=== PATIENT | female | born 1980 | race Caucasian/White ===

== ENCOUNTER 2016-08-30 11:37 | Emergency (ER) | payer MEDICAID, OTHER ==
--- NOTE | 2016-08-30 12:24 | EDM.PDOC ---
ED HPI GI/ABDOMINAL - General Chief Complaint: Abdominal Pain Stated Complaint: GALL BLADDER Time Seen by Provider: 08/30/16 12:19 Source of Information: Reports: Patient History Limitations: Reports: No limitations - History of Present Illness INITIAL COMMENTS - FREE TEXT/NARRATIVE: Pt states that she is having abdominal pain for the past 2 years intermittently however this week(since Wednesday) it has been worse. States that she believes that it was her gall bladder because she had greasy foods last week and has been having diarrhea since then. States that pain is in RUQ and radites to R flank. denies vomiting currently. pt does not appear in distress but rates pain 12/14. Symptom Onset Date: 08/25/16 Timing/Duration: Reports: Getting worse Location: RUQ Quality: Reports: stabbing, radiating Severity: moderate Associated Symptoms (-Female): Reports: back pain, diarrhea - Related Data Allergies/ADRs: Allergies Allergy/AdvReac Type Severity Reaction Status Date / Time blue dye Allergy Other Verified 11/02/15 07:43 cinnamon Allergy Other Verified 11/02/15 07:43 egg Allergy Other Verified 11/02/15 07:43 gluten Allergy Diarrhea Verified 08/30/16 11:51 peanut Allergy Other Verified 11/02/15 07:43 red dye Allergy Other Verified 11/02/15 07:43 Home Meds: Home Meds PARoxetine [Paxil] 10 mg PO DAILY 08/30/16 [History] Past Medical History - Past Health History Medical/Surgical History: Denies Medical/Surgical History HEENT History: Reports: Impaired vision Other HEENT History: wears glasses Cardiovascular History: Reports: None Respiratory History: Reports: None Gastrointestinal History: Reports: None Genitourinary History: Reports: None 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 Musculoskeletal History: Reports: None Neurological History: Reports: None Psychiatric History: Reports: Anxiety Endocrine/Metabolic History: Reports: Obesity/BMI 30+ Hematologic History: Reports: None Immunologic History: Reports: None Oncologic (Cancer) History: Reports: None Dermatologic History: Reports: None - Infectious Disease History Infectious Disease History: Reports: Chicken pox - Past Surgical History Head Surgeries/Procedures: Reports: None Female Surgical History: Reports: section Social & Family History - Family History Family Medical History: Noncontributory - Tobacco Use Smoking Status *Q: Never Smoker Second Hand Smoke Exposure: No - Caffeine Use Caffeine Use: Reports: Tea - Recreational Drug Use Recreational Drug Use: No - Living Situation & Occupation Living situation: Reports: , with family ED ROS GENERAL - Review of Systems Review Of Systems: See Below GI/Abdominal: Reports: Abdominal pain, Diarrhea, Nausea ED EXAM, GI/ABD - Physical Exam Exam: See Below Exam Limited By: No limitations General Appearance: alert, WD/WN, no apparent distress Eyes: bilateral: normal appearance, EOMI GI/Abdominal: normal bowel sounds, soft, no organomegaly, no distention, no abnormal bruit, no mass, tenderness Neurological: alert, oriented, CN II-XII intact, normal cognition, normal gait, normal reflexes, no motor/sensory deficits Course - Vital Signs Last Recorded V/S: Last Vital Signs Temp 97.6 F 08/30/16 11:44 Pulse 96 08/30/16 11:59 Resp 16 08/30/16 11:59 BP 167/103 H 08/30/16 11:52 Pulse Ox 100 08/30/16 11:59 - Re-Assessments/Exams Free Text/Narrative Re-Assessment/Exam: 08/30/16 12:24 With lack of Ultrasound, pt states that she would rather go to [facility] for treatment. States that she has a doctors appointment tomorrow with her PCP however she can not wait. Offered patient full work up and pain medications however patient would prefer to receive medication when she gets to [facility] as she is nervous about it causing more complications. Pt states she will go directly to [facility] for further treatment. Vitals stable, pt in no distress. Encouraged patient to go directly to [facility], will notify [facility] of patients potential arrival. Departure - Departure Time of Disposition: 12:29 Disposition: Home, Self-Care 01 Condition: good Clinical Impression: Abdominal pain Qualifiers: Abdominal location: right upper quadrant Qualified Code(s): R10.11 - Right upper quadrant pain Instructions: Abdominal Pain, Adult, [id number] Forms: ED Department Discharge Additional Instructions: Go to nearest ER for worsening symptoms. You may go to [facility] for workup if desired, however if unable , please return for further treatment.
== END 2016-08-30 12:40 | disposition home or self-care (01) ==
LOC: DL.ED 11:37
CPT/HCPCS: 99282; 99284

== ENCOUNTER 2017-01-24 11:01 | Emergency (ER) | payer MEDICAID ==
[2017-01-24 11:15] VITALS: BP 141/89
--- NOTE | 2017-01-24 11:18 | EDM.PDOC ---
ED HPI GENERAL MEDICAL PROBLEM - General Chief Complaint: ENT Problem Stated Complaint: TONSILS OUT BLEEDING [id number] Time Seen by Provider: 01/24/17 11:13 Source of Information: Reports: Patient, Family () History Limitations: Reports: No Limitations - History of Present Illness INITIAL COMMENTS - FREE TEXT/NARRATIVE: 36 yo white female s/p Tonsilectomy on Wednesday ( 3 days ago) c/o some red blood with nausea. Onset Date: 01/24/17 Onset Time: 07:00 Duration: Hour(s): Location: Reports: Head Severity: Mild Context: Reports: Other (s/p Tonsillectomy 3 days ago) Associated Symptoms: Reports: No Other Symptoms - Related Data Allergies Allergy/AdvReac Type Severity Reaction Status Date / Time blue dye Allergy Other Verified 11/02/15 07:43 cinnamon Allergy Other Verified 11/02/15 07:43 egg Allergy Other Verified 11/02/15 07:43 gluten Allergy Diarrhea Verified 08/30/16 11:51 peanut Allergy Other Verified 11/02/15 07:43 red dye Allergy Other Verified 11/02/15 07:43 Home Meds: Home Meds PARoxetine [Paxil] 10 mg PO DAILY 08/30/16 [History] Past Medical History - Past Health History Medical/Surgical History: Denies Medical/Surgical History HEENT History: Reports: Impaired Vision Other HEENT History: wears glasses Cardiovascular History: Reports: None Respiratory History: Reports: None Gastrointestinal History: Reports: None Genitourinary History: Reports: None 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 Musculoskeletal History: Reports: None Neurological History: Reports: None Psychiatric History: Reports: Anxiety Endocrine/Metabolic History: Reports: Obesity/BMI 30+ Hematologic History: Reports: None Immunologic History: Reports: None Oncologic (Cancer) History: Reports: None Dermatologic History: Reports: None - Infectious Disease History Infectious Disease History: Reports: Chicken Pox - Past Surgical History Female Surgical History: Reports: Section Social & Family History - Family History Family Medical History: Noncontributory - Tobacco Use Smoking Status *Q: Never Smoker Second Hand Smoke Exposure: No - Caffeine Use Caffeine Use: Reports: Tea - Recreational Drug Use Recreational Drug Use: No - Living Situation & Occupation Living situation: Reports: , with Family ED ROS ENT - Review of Systems Review Of Systems: See Below Constitutional: Reports: No Symptoms HEENT: Reports: Throat Pain (s/p tonsilectomy 3 days ago) Respiratory: Reports: No Symptoms Cardiovascular: Reports: No Symptoms Endocrine: Reports: No Symptoms GI/Abdominal: Reports: No Symptoms : Reports: No Symptoms Musculoskeletal: Reports: No Symptoms Skin: Reports: No Symptoms Neurological: Reports: No Symptoms Psychiatric: Reports: No Symptoms Hematologic/Lymphatic: Reports: No Symptoms Immunologic: Reports: No Symptoms ED EXAM, ENT - Physical Exam Exam: See Below Exam Limited By: No Limitations General Appearance: Alert, Obese Eye Exam: Bilateral Eye: PERRL Ears: Normal External Exam Nose: Normal Inspection Mouth/Throat: Throat Pain, Other (healing post tonsilectomy w/o active bleeding) Head: Atraumatic Neck: Normal Inspection, Supple Respiratory/Chest: No Respiratory Distress, Lungs Clear Cardiovascular: Normal Peripheral Pulses, Regular Rate, Rhythm GI/Abdominal: Normal Bowel Sounds, Soft Back: Normal Inspection Extremities: Normal Inspection, Normal Range of Motion Neurological: Alert, Oriented, CN II-XII Intact Psychiatric: Normal Affect, Normal Mood Skin: Warm, Dry, Intact Lymphatic: No Adenopathy Departure - Departure Time of Disposition: 11:17 Disposition: Home, Self-Care 01 Condition: Good Clinical Impression: Hemorrhage, tonsil, postoperative - Discharge Information Forms: ED Department Discharge Additional Instructions: Rest Increase intake of fluids ( Water / Juice and may suck on ice) Diet to be ( Liquid or Soft) F/U w/ ENT Wednesday for re-check
== END 2017-01-24 11:30 | disposition home or self-care (01) ==
LOC: DL.ED 11:01
DX: J95.831 Postprocedural hemorrhage of a respiratory system organ or structure following other procedure (principal); E66.9 Obesity, unspecified; F41.9 Anxiety disorder, unspecified; Z98.890 Other specified postprocedural states; Z91.041 Radiographic dye allergy status; Z91.012 Allergy to eggs; Z91.010 Allergy to peanuts
CPT/HCPCS: 99283

== ENCOUNTER 2017-04-09 11:09 | Emergency (ER) | payer MEDICAID, OTHER, SELFPAY ==
[2017-04-09 11:39] VITALS: BP 143/84
--- NOTE | 2017-04-09 12:12 | CR ---
Clinical history: 36-year-old female with pain after fall. Interpretation: Soft tissue swelling and ankle joint effusion. No fracture or dislocation left foot (atavistic first cuneiform). Large heel spurs at the insertion plantar aponeurosis and Achilles tendon on the os calcis.
--- NOTE | 2017-04-09 12:12 | CR ---
Clinic history: 36-year-old female left ankle pain associated with fall. Interpretation: Bimalleolar soft tissue swelling and ankle joint effusion without sign of underlying fracture or dislocation. Large heel spurs at the insertion plantar aponeurosis and Achilles tendon on the os calcis. No foreign bodies. CONCLUSION: Sprain.
--- NOTE | 2017-04-09 12:21 | EDM.PDOC ---
ED HPI GENERAL MEDICAL PROBLEM - General Chief Complaint: Lower Extremity Injury/Pain Stated Complaint: HURT ANKLE, [id number] Time Seen by Provider: 04/09/17 11:35 Source of Information: Reports: Patient, RN, RN Notes Reviewed History Limitations: Reports: No Limitations - History of Present Illness INITIAL COMMENTS - FREE TEXT/NARRATIVE: Pt presents to ER with c/o painful, swollen left ankle with pain into the foot, radiates up to the left thigh yesterday, and up to the left knee today. She states she rolled her ankle off a sidewalk while taking her children to the bus. She states it is very painful to bear weight on the foot. Onset Date: 04/08/17 Location: Reports: Lower Extremity, Left Quality: Reports: Ache, Throbbing Severity: Moderate Improves with: Reports: None Worsens with: Reports: Movement Associated Symptoms: Reports: No Other Symptoms Left Ankle Pain Score (Numeric/FACES): 3 - Related Data Allergies Allergy/AdvReac Type Severity Reaction Status Date / Time blue dye Allergy Other Verified 04/09/17 11:24 cinnamon Allergy Other Verified 04/09/17 11:24 egg Allergy Other Verified 04/09/17 11:24 gluten Allergy Diarrhea Verified 04/09/17 11:24 peanut Allergy Other Verified 04/09/17 11:24 red dye Allergy Other Verified 04/09/17 11:24 Home Meds: Home Meds PARoxetine [Paxil] 10 mg PO DAILY 08/30/16 [History] Loratadine/Pseudoephedrine [Loratadine-D 24Hr] 1 tab PO DAILY 04/09/17 [History] Past Medical History - Past Health History Medical/Surgical History: Denies Medical/Surgical History HEENT History: Reports: Impaired Vision Other HEENT History: wears glasses Cardiovascular History: Reports: None Respiratory History: Reports: None Gastrointestinal History: Reports: Diverticulosis Genitourinary History: Reports: None 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 Other OB/BYN History: hysterectomy Musculoskeletal History: Reports: None Neurological History: Reports: None Psychiatric History: Reports: Anxiety Endocrine/Metabolic History: Reports: Obesity/BMI 30+ Hematologic History: Reports: None Immunologic History: Reports: None Oncologic (Cancer) History: Reports: None Dermatologic History: Reports: None - Infectious Disease History Infectious Disease History: Reports: Chicken Pox - Past Surgical History Head Surgeries/Procedures: Reports: None HEENT Surgical History: Reports: Tonsillectomy GI Surgical History: Reports: Cholecystectomy Female Surgical History: Reports: Section Social & Family History - Family History Family Medical History: Noncontributory - Tobacco Use Smoking Status *Q: Never Smoker Second Hand Smoke Exposure: No - Caffeine Use Caffeine Use: Reports: Soda - Recreational Drug Use Recreational Drug Use: Yes Recreational Drug Type: Reports: Marijuana/Hashish Recreational Drug Use Frequency: Rarely Recreational Drug Last Use: "a few weeks ago" - Living Situation & Occupation Living situation: Reports: , with Family Review of Systems - Review of Systems Review Of Systems: ROS reveals no pertinent complaints other than HPI. ED EXAM, GENERAL - Physical Exam Exam: See Below Exam Limited By: No Limitations General Appearance: Alert, WD/WN, No Apparent Distress Eye Exam: Bilateral Eye: Normal Inspection Ears: Normal External Exam, Hearing Grossly Normal Nose: Normal Inspection Throat/Mouth: Normal Inspection, Normal Voice, No Airway Compromise Head: Atraumatic, Normocephalic Neck: Normal Inspection, Supple, Non-Tender, Full Range of Motion Respiratory/Chest: No Respiratory Distress, Lungs Clear, Normal Breath Sounds, No Accessory Muscle Use, Chest Non-Tender Cardiovascular: Normal Peripheral Pulses, Regular Rate, Rhythm, No Gallop, No JVD, No Murmur, No Rub Peripheral Pulses: 2+: Radial (L), Radial (R), Dorsalis Pedis (L), Dorsalis Pedis (R) GI/Abdominal: Normal Bowel Sounds, Soft, Non-Tender (Female) Exam: Deferred Rectal (Female) Exam: Deferred Back Exam: Normal Inspection, Full Range of Motion Extremities: Other (left ankle is edematous, mildly ecchymotic, decreased range of motion, tender to the touch) Neurological: Alert, Oriented, Normal Cognition Psychiatric: Normal Affect, Normal Mood Skin Exam: Warm, Dry, Intact, Normal Color, No Rash Lymphatic: No Adenopathy Course - Vital Signs Last Recorded V/S: Last Vital Signs Temp 98.6 F 04/09/17 11:36 Pulse 90 04/09/17 11:36 Resp 16 04/09/17 11:36 BP 143/84 H 04/09/17 11:36 Pulse Ox 100 04/09/17 11:36 - Re-Assessments/Exams Free Text/Narrative Re-Assessment/Exam: 04/10/17 Rodney wrap applied. Patient states she has a universal Cam boot and crutches at home that she can use. Patient agrees to follow up in the clinic next week if no improvement. Departure - Departure Time of Disposition: 12:18 Disposition: Home, Self-Care 01 Condition: Good Clinical Impression: Left ankle sprain Qualifiers: Encounter type: initial encounter Involved ligament of ankle: unspecified ligament Qualified Code(s): S93.402A - Sprain of unspecified ligament of left ankle, initial encounter - Discharge Information Instructions: Crutch Use, [id number], Ankle Sprain, [id number], Cast or Splint Care, [id number], Muscle Strain, [id number] Referrals: PCP,None [Primary Care Provider] - Forms: ED Department Discharge Additional Instructions: Rest, Ice, Elevation Tylenol or ibuprofen as directed for pain Splint and use crutches Follow up with your primary care facility next week if pain continues
== END 2017-04-09 12:32 | disposition home or self-care (01) ==
LOC: DL.ED 11:09
DX: S93.402A Sprain of unspecified ligament of left ankle, initial encounter (principal); Z91.012 Allergy to eggs; Z91.010 Allergy to peanuts; Z79.899 Other long term (current) drug therapy; X58.XXXA Exposure to other specified factors, initial encounter
CPT/HCPCS: 73610-LT; 73630-LT; 99283

== ENCOUNTER 2019-10-30 21:55 | Observation (INO) | payer MEDICAID ==
[2019-10-30] MEDS ORDERED: Sodium Chloride 0.9% 1,000 ML IV ONE (21:59)
[2019-10-30] MEDS ORDERED: Naloxone 2 MG/2 ML Syringe IVPUSH ONE (22:11)
--- NOTE | 2019-10-30 22:12 | EDM.PDOC ---
ED HPI GENERAL MEDICAL PROBLEM - General Chief Complaint: General Stated Complaint: passing out/feels warm Time Seen by Provider: 10/30/19 22:00 Source of Information: Reports: RN, Other History Limitations: Reports: No Limitations - History of Present Illness INITIAL COMMENTS - FREE TEXT/NARRATIVE: ED per wheel chair friend reports patient keeps passing out. Bedroom area warm and patients boyfriend called her as they did not have transportation. Brought by friend No other information available, Patient drowsy, arousable, able to assist with tx from wheelchair to bed. Admits to taking a couple oxy and a sleeping pill she found in couch. small superficial laceration to lower lip, dried blood on toungue, no sign of bite gutierrez to tongue. No signs of head trauma or other injury. - Related Data Allergies Allergy/AdvReac Type Severity Reaction Status Date / Time blue dye Allergy Other Verified 04/09/17 11:24 cinnamon Allergy Other Verified 04/09/17 11:24 egg Allergy Other Verified 04/09/17 11:24 gluten Allergy Diarrhea Verified 04/09/17 11:24 peanut Allergy Other Verified 04/09/17 11:24 red dye Allergy Other Verified 04/09/17 11:24 Home Meds: Home Meds PARoxetine [Paxil] 10 mg PO DAILY 08/30/16 [History] Loratadine/Pseudoephedrine [Loratadine-D 24Hr] 1 tab PO DAILY 04/09/17 [History] Past Medical History - Past Health History Medical/Surgical History: Denies Medical/Surgical History HEENT History: Reports: Impaired Vision Other HEENT History: wears glasses Cardiovascular History: Reports: None Respiratory History: Reports: None Gastrointestinal History: Reports: Diverticulosis Genitourinary History: Reports: None SPIRAL TUBE WINDER History: Reports: None Other SPIRAL TUBE WINDER History: hysterectomy Musculoskeletal History: Reports: None Neurological History: Reports: None Psychiatric History: Reports: Anxiety Endocrine/Metabolic History: Reports: Obesity/BMI 30+ Hematologic History: Reports: None Immunologic History: Reports: None Oncologic (Cancer) History: Reports: None Dermatologic History: Reports: None - Infectious Disease History Infectious Disease History: Reports: Chicken Pox - Past Surgical History Head Surgeries/Procedures: Reports: None HEENT Surgical History: Reports: Tonsillectomy GI Surgical History: Reports: Cholecystectomy Female Surgical History: Reports: Section Social & Family History - Family History Family Medical History: Noncontributory - Caffeine Use Caffeine Use: Reports: Soda - Living Situation & Occupation Living situation: Reports: , with Family ED ROS GENERAL - Review of Systems Review Of Systems: Comprehensive ROS is negative, except as noted in HPI. Reason Not Obtained: altered mental ED EXAM, GENERAL - Physical Exam Exam: See Below Exam Limited By: No Limitations General Appearance: Lethargic (arouses to voice, eyes flicker, slowed verbal response, twitchy when aroused ), Obese Eye Exam: Bilateral Eye: EOMI, PERRL (sluggish 3 increase to 5 following narcan) Ears: Normal External Exam, Normal TMs Nose: Normal Inspection Throat/Mouth: Normal Voice. No: Normal Lips (2mm laceration mid linner lower lip) Head: Atraumatic, Normocephalic, Other (long slovak with recently purple blue hir) Neck: Normal Inspection Respiratory/Chest: No Respiratory Distress, Lungs Clear, Normal Breath Sounds Cardiovascular: Normal Peripheral Pulses, Regular Rate, Rhythm, No Edema GI/Abdominal: Normal Bowel Sounds, Soft (Female) Exam: Normal External Exam Back Exam: Normal Inspection Extremities: Normal Inspection Neurological: Slow to Respond Psychiatric: Flat Affect, Other (No recent signs of self harm) Skin Exam: Warm, Dry, Tattoo(s) ( recent left thigh dragonfly, mild erythem lower, no drainage ) Course - Vital Signs Last Recorded V/S: Last Vital Signs Temp 99 F 10/30/19 21:59 Pulse 97 10/30/19 21:59 Resp 18 10/30/19 21:59 BP 95/70 10/30/19 21:59 Pulse Ox 91 L 10/30/19 21:59 - Orders/Labs/Meds Orders: Active Orders 24 hr Category Date Time Status Blood Glucose Check, Bedside [RC] ONETIME Care 10/30/19 21:59 Active EKG 12 Lead [EKG Documentation Completion] [RC] URGENT Care 10/30/19 21:59 Active CULTURE BLOOD [BC] Stat Lab 10/30/19 22:14 Received LORazepam [Ativan] Med 10/30/19 22:22 Active 1 mg IVPUSH ONETIME PRN LORazepam [Ativan] Med 10/30/19 23:23 Active 1 mg IVPUSH ONETIME PRN Blood Culture x2 Reflex Set [OM.PC] Stat Oth 10/30/19 22:01 Ordered Medication Orders Lorazepam (Ativan) 1 mg IVPUSH ONETIME PRN PRN Reason: Agitation Last Admin: 10/30/19 22:52 Dose: 1 mg Lorazepam (Ativan) 1 mg IVPUSH ONETIME PRN PRN Reason: Agitation Labs: Laboratory Tests 10/30/19 10/30/19 10/30/19 Range/Units 22:00 22:00 22:05 WBC (5.0-10.0) 10^3/uL RBC (4.2-5.4) 10^6/uL Hgb (12.0-16.0) g/dL Hct (37.0-47.0) % MCV (80-100) fL MCH (27.0-34.0) pg MCHC (33.0-35.0) g/dL Plt Count (150-450) 10^3/uL Neut % (Auto) (42.2-75.2) % Lymph % (Auto) (20.5-50.1) % Berrien % (Auto) (2-8) % Eos % (Auto) (1.0-3.0) % Baso % (Auto) (0.0-1.0) % Sodium (136-145) mmol/L Potassium (3.5-5.1) mmol/L Chloride (98-107) mmol/L Carbon Dioxide (21-32) mmol/L Anion Gap (7-13) mEq/L BUN (7-18) mg/dL Creatinine (0.55-1.02) mg/dL Est Cr Clr Drug Dosing Estimated GFR (MDRD) BUN/Creatinine Ratio (No establ ref range) Glucose (74-99) mg/dL POC Glucose 91 (70-105) mg/dl Lactic Acid (0.4-2.0) mmol/L Calcium (8.5-10.1) mg/dL Total Bilirubin (0.2-1.0) mg/dL AST (15-37) U/L ALT (14-59) U/L Alkaline Phosphatase (46-116) U/L Total Protein (6.4-8.2) g/dL Albumin (3.4-5.0) g/dL Globulin Albumin/Globulin Ratio HCG, Qual Urine Color Yellow (YELLOW) Urine Appearance Slightly cloudy (CLEAR) Urine pH 6.0 (5.0-9.0) Ur Specific Yoder 1.015 (1.005-1.030) Urine Protein Negative (NEGATIVE) Urine Glucose (UA) Negative (NEGATIVE) Urine Ketones Negative (NEGATIVE) Urine Occult Blood Negative (NEGATIVE) Urine Nitrite Negative (NEGATIVE) Urine Bilirubin Negative (NEGATIVE) Urine Urobilinogen 0.2 (0.2-1.0) mg/dL Ur Leukocyte Esterase Trace H (NEGATIVE) Urine RBC Not seen /HPF Urine WBC 0-5 (0-5/HPF) /HPF Ur Epithelial Cells Moderate H (NOT SEEN) /HPF Amorphous Sediment Few (NOT SEEN) /HPF Urine Bacteria Few (0-FEW/HPF) /HPF Urine Mucus Rare (NOT SEEN) /LPF Salicylates (2.8-20(Therapeutic)) mg/dL Urine Opiates Screen Negative (NEGATIVE) Ur Oxycodone Screen Positive H (NEGATIVE) Urine Methadone Screen Negative (NEGATIVE) Acetaminophen (10-30 (Therapeutic)) ug/mL Ur Barbiturates Screen Negative (NEGATIVE) U Tricyclic Antidepress Positive H (NEGATIVE) Ur Phencyclidine Scrn Negative (NEGATIVE) Ur Amphetamine Screen Negative (NEGATIVE) U Methamphetamines Scrn Negative (NEGATIVE) Urine MDMA Screen Negative (NEGATIVE) U Benzodiazepines Scrn Positive H (NEGATIVE) Urine Cocaine Screen Negative (NEGATIVE) U Marijuana (THC) Screen Positive H (NEGATIVE) Ethyl Alcohol (0) mg/dL 10/30/19 10/30/19 10/30/19 Range/Units 22:14 22:14 22:14 WBC 11.4 H (5.0-10.0) 10^3/uL RBC 4.97 (4.2-5.4) 10^6/uL Hgb 14.2 (12.0-16.0) g/dL Hct 44.2 (37.0-47.0) % MCV 88.9 (80-100) fL MCH 28.6 (27.0-34.0) pg MCHC 32.1 L (33.0-35.0) g/dL Plt Count 286 (150-450) 10^3/uL Neut % (Auto) 61.3 (42.2-75.2) % Lymph % (Auto) 29.1 (20.5-50.1) % Berrien % (Auto) 5.5 (2-8) % Eos % (Auto) 3.8 H (1.0-3.0) % Baso % (Auto) 0.3 (0.0-1.0) % Sodium 140 (136-145) mmol/L Potassium 3.9 (3.5-5.1) mmol/L Chloride 102 (98-107) mmol/L Carbon Dioxide 36 H (21-32) mmol/L Anion Gap 5.9 L (7-13) mEq/L BUN 6 L (7-18) mg/dL Creatinine 0.95 (0.55-1.02) mg/dL Est Cr Clr Drug Dosing TNP Estimated GFR (MDRD) > 60 BUN/Creatinine Ratio 6.3 (No establ ref range) Glucose 89 (74-99) mg/dL POC Glucose (70-105) mg/dl Lactic Acid 0.8 (0.4-2.0) mmol/L Calcium 8.4 L (8.5-10.1) mg/dL Total Bilirubin 0.4 (0.2-1.0) mg/dL AST 45 H (15-37) U/L ALT 58 (14-59) U/L Alkaline Phosphatase 134 H (46-116) U/L Total Protein 7.1 (6.4-8.2) g/dL Albumin 3.3 L (3.4-5.0) g/dL Globulin 3.8 Albumin/Globulin Ratio 0.87 HCG, Qual Urine Color (YELLOW) Urine Appearance (CLEAR) Urine pH (5.0-9.0) Ur Specific Yoder (1.005-1.030) Urine Protein (NEGATIVE) Urine Glucose (UA) (NEGATIVE) Urine Ketones (NEGATIVE) Urine Occult Blood (NEGATIVE) Urine Nitrite (NEGATIVE) Urine Bilirubin (NEGATIVE) Urine Urobilinogen (0.2-1.0) mg/dL Ur Leukocyte Esterase (NEGATIVE) Urine RBC /HPF Urine WBC (0-5/HPF) /HPF Ur Epithelial Cells (NOT SEEN) /HPF Amorphous Sediment (NOT SEEN) /HPF Urine Bacteria (0-FEW/HPF) /HPF Urine Mucus (NOT SEEN) /LPF Salicylates (2.8-20(Therapeutic)) mg/dL Urine Opiates Screen (NEGATIVE) Ur Oxycodone Screen (NEGATIVE) Urine Methadone Screen (NEGATIVE) Acetaminophen (10-30 (Therapeutic)) ug/mL Ur Barbiturates Screen (NEGATIVE) U Tricyclic Antidepress (NEGATIVE) Ur Phencyclidine Scrn (NEGATIVE) Ur Amphetamine Screen (NEGATIVE) U Methamphetamines Scrn (NEGATIVE) Urine MDMA Screen (NEGATIVE) U Benzodiazepines Scrn (NEGATIVE) Urine Cocaine Screen (NEGATIVE) U Marijuana (THC) Screen (NEGATIVE) Ethyl Alcohol < 3 (0) mg/dL 10/30/19 10/30/19 Range/Units 22:14 22:14 WBC (5.0-10.0) 10^3/uL RBC (4.2-5.4) 10^6/uL Hgb (12.0-16.0) g/dL Hct (37.0-47.0) % MCV (80-100) fL MCH (27.0-34.0) pg MCHC (33.0-35.0) g/dL Plt Count (150-450) 10^3/uL Neut % (Auto) (42.2-75.2) % Lymph % (Auto) (20.5-50.1) % Berrien % (Auto) (2-8) % Eos % (Auto) (1.0-3.0) % Baso % (Auto) (0.0-1.0) % Sodium (136-145) mmol/L Potassium (3.5-5.1) mmol/L Chloride (98-107) mmol/L Carbon Dioxide (21-32) mmol/L Anion Gap (7-13) mEq/L BUN (7-18) mg/dL Creatinine (0.55-1.02) mg/dL Est Cr Clr Drug Dosing Estimated GFR (MDRD) BUN/Creatinine Ratio (No establ ref range) Glucose (74-99) mg/dL POC Glucose (70-105) mg/dl Lactic Acid (0.4-2.0) mmol/L Calcium (8.5-10.1) mg/dL Total Bilirubin (0.2-1.0) mg/dL AST (15-37) U/L ALT (14-59) U/L Alkaline Phosphatase (46-116) U/L Total Protein (6.4-8.2) g/dL Albumin (3.4-5.0) g/dL Globulin Albumin/Globulin Ratio HCG, Qual Negative Urine Color (YELLOW) Urine Appearance (CLEAR) Urine pH (5.0-9.0) Ur Specific Yoder (1.005-1.030) Urine Protein (NEGATIVE) Urine Glucose (UA) (NEGATIVE) Urine Ketones (NEGATIVE) Urine Occult Blood (NEGATIVE) Urine Nitrite (NEGATIVE) Urine Bilirubin (NEGATIVE) Urine Urobilinogen (0.2-1.0) mg/dL Ur Leukocyte Esterase (NEGATIVE) Urine RBC /HPF Urine WBC (0-5/HPF) /HPF Ur Epithelial Cells (NOT SEEN) /HPF Amorphous Sediment (NOT SEEN) /HPF Urine Bacteria (0-FEW/HPF) /HPF Urine Mucus (NOT SEEN) /LPF Salicylates < 2.8 L (2.8-20(Therapeutic)) mg/dL Urine Opiates Screen (NEGATIVE) Ur Oxycodone Screen (NEGATIVE) Urine Methadone Screen (NEGATIVE) Acetaminophen 0 L (10-30 (Therapeutic)) ug/mL Ur Barbiturates Screen (NEGATIVE) U Tricyclic Antidepress (NEGATIVE) Ur Phencyclidine Scrn (NEGATIVE) Ur Amphetamine Screen (NEGATIVE) U Methamphetamines Scrn (NEGATIVE) Urine MDMA Screen (NEGATIVE) U Benzodiazepines Scrn (NEGATIVE) Urine Cocaine Screen (NEGATIVE) U Marijuana (THC) Screen (NEGATIVE) Ethyl Alcohol (0) mg/dL Meds: Medications Generic Name Dose Route Start Last Admin Trade Name Freq PRN Reason Stop Dose Admin Lorazepam 1 mg 10/30/19 22:22 10/30/19 22:52 Ativan IVPUSH 1 mg ONETIME PRN Administration Agitation Lorazepam 1 mg 10/30/19 23:23 Ativan IVPUSH ONETIME PRN Agitation Discontinued Medications Generic Name Dose Route Start Last Admin Trade Name Freq PRN Reason Stop Dose Admin Sodium Chloride 1,000 mls @ 500 mls/hr 10/30/19 21:59 10/30/19 22:16 Normal Saline IV 10/30/19 23:58 500 mls/hr .BOLUS ONE Administration Naloxone HCl 2 mg 10/30/19 22:11 10/30/19 22:16 Narcan IVPUSH 10/30/19 22:12 2 mg ONETIME ONE Administration Ondansetron HCl 4 mg 10/30/19 22:28 10/30/19 22:52 Zofran IVPUSH 10/30/19 22:29 4 mg ONETIME ONE Administration - Radiology Interpretation Free Text/Narrative:: [facility] [place] [facility] Final Radiology Report Call: [phone] assistance Online chat: [email or web address] Name: KVNG MARI Age: 38Years F Date: 10/30/2019 SSN: -- : [id number] Study: CT HEAD WO Requesting Physician: JIMENEZ SAENZ Images: 164 Addl Studies: Provided Clinical History: altered mental status Contrast: Without Contrast Medium: Contrast Amount: Contrast Method: Page 1 of 2 PROCEDURE INFORMATION: Exam: CT Head Without Contrast Exam date and time: 10/30/2019 11:39 PM Age: 38 years old Clinical indication: Altered mental status/memory loss; Confusion or disorientation TECHNIQUE: Imaging protocol: Computed tomography of the head without contrast. Radiation optimization: All CT scans at this facility use at least one of these dose optimization techniques: automated exposure control; mA and/or kV adjustment per patient size (includes targeted exams where dose is matched to clinical indication); or iterative reconstruction. COMPARISON: No relevant prior studies available. FINDINGS: Brain: No mass effect or midline shift. No abnormal densities are seen intracranially; no sign of acute intracranial hemorrhage or cerebral edema. Ventricles: Ventricles and cortical sulci are normal in caliber. Bones/joints: Skull base and overlying calvarium are intact. No lytic or osteosclerotic lesions. Sinuses: Nodule right maxillary sinus probably retention cyst. Mastoid air cells: Visualized mastoid air cells are well aerated. Soft tissues: Unremarkable. IMPRESSION: No acute intracranial abnormality. Thank you for allowing us to participate in the care of your patient. - Re-Assessments/Exams Free Text/Narrative Re-Assessment/Exam: 10/31/19 01:56 Initial report took a couple oxy, stated got them from her doctor for back pain , later that she got 2 for a 100$ with child support money. No records through local pharmacy med list or through [place] Drug monitoring . One time dose Narcan 2 mg patient improved LOC, very agitated and twitching thrashing in bed, 0100 sleeping, arouses to voice. Groggy, able to follow simple command, assist one to commode. Return to bed promptly back to sleep. 10/31/19 02:14TC Dr Richardson , accept observation Opiate Abuse overdose Departure - Departure Time of Disposition: 02:15 Disposition: Refer to Observation Condition: Good Clinical Impression: Lip laceration Qualifiers: Encounter type: initial encounter Qualified Code(s): S01.511A - Laceration without foreign body of lip, initial encounter Opiate overdose Qualifiers: Encounter type: initial encounter Injury intent: undetermined intent Qualified Code(s): T40.604A - Poisoning by unspecified narcotics, undetermined, initial encounter - Discharge Information *PRESCRIPTION DRUG MONITORING PROGRAM REVIEWED*: No *COPY OF PRESCRIPTION DRUG MONITORING REPORT IN PATIENT VANNA: No Forms: ED Department Discharge Sepsis Event Note - Evaluation Sepsis Screening Result: No Definite Risk - Focused Exam Vital Signs: Vital Signs Temp Pulse Resp BP Pulse Ox 10/30/19 21:59 99 F 97 18 95/70 91 L Date Exam was Performed: 10/31/19 Time Exam was Performed: 01:34 - My Orders Last 24 Hours: My Active Orders 10/30/19 21:59 Blood Glucose Check, Bedside [RC] ONETIME EKG 12 Lead [EKG Documentation Completion] [RC] URGENT 10/30/19 22:01 Blood Culture x2 Reflex Set [OM.PC] Stat 10/30/19 22:14 CULTURE BLOOD [BC] Stat 10/30/19 22:22 LORazepam [Ativan] 1 mg IVPUSH ONETIME PRN 10/30/19 23:23 LORazepam [Ativan] 1 mg IVPUSH ONETIME PRN - Assessment/Plan Last 24 Hours: My Active Orders 10/30/19 21:59 Blood Glucose Check, Bedside [RC] ONETIME EKG 12 Lead [EKG Documentation Completion] [RC] URGENT 10/30/19 22:01 Blood Culture x2 Reflex Set [OM.PC] Stat 10/30/19 22:14 CULTURE BLOOD [BC] Stat 10/30/19 22:22 LORazepam [Ativan] 1 mg IVPUSH ONETIME PRN 10/30/19 23:23 LORazepam [Ativan] 1 mg IVPUSH ONETIME PRN
[2019-10-30] MEDS ORDERED: LORazepam 2 MG/ML SDV IVPUSH PRN ×2 (22:22→23:23)
[2019-10-30] MEDS ORDERED: Ondansetron 4 MG/2 ML SDV IVPUSH ONE (22:28)
[2019-10-30 22:51] LABS: ANION GAP 5.9 mEq/L (7-13); CHLORIDE,CL 102 mmol/L (98-107); SODIUM,NA 140 mmol/L (136-145)
[2019-10-30 23:02] LABS: ACETAMINOPHEN 0 ug/mL (10-30 (Therapeutic))
[2019-10-31] MEDS ORDERED: Ondansetron 4 MG Tab.DIS PO PRN (03:37)
[2019-10-31] MEDS ORDERED: Acetaminophen 325 MG Tab PO PRN (03:37)
[2019-10-31] MEDS ORDERED: Ondansetron 4 MG/2 ML SDV IVPUSH PRN (03:37)
[2019-10-31] MEDS ORDERED: Sodium Chloride 0.9% 1,000 ML IV SCH (03:45)
--- NOTE | 2019-10-31 03:52 | PCM.HP ---
H&P History of Present Illness - General Date of Service: 10/31/19 Admit Problem/Dx: Admission Diagnosis/Problem Admission Diagnosis/Problem Encephalopathy Source of Information: Old Records, Provider History Limitations: Reports: Altered Mental Status - History of Present Illness Initial Comments - Free Text/Narative: Patient is encephalopathic, history below obtained from chart review and in speaking with ED provider. Patient is a 38-year-old male with medical history significant for chronic daily headaches, GERD, nonalcoholic fatty liver disease, lumbar disc disease with radiculopathy, fibromyalgia, anxiety, status post cervical discectomy, and chronic pain syndrome who was brought to the ED by friend to the ED because patient's boyfriend noticed that she kept passing out. ED provider reports that the patient's friends were unable to provide any further information. Patient had reported that she took an extra dose of her pain medications. Subsequently reported that she took sleeping pills. In the ED, patient became more responsive after receiving Narcan. However she became agitated and she was administered Ativan after which patient subsequently became sedated. I am unable to obtain ROS due to patient's condition. - Related Data Allergies/Adverse Reactions: Allergies Allergy/AdvReac Type Severity Reaction Status Date / Time blue dye Allergy Other Verified 04/09/17 11:24 cinnamon Allergy Other Verified 04/09/17 11:24 egg Allergy Other Verified 04/09/17 11:24 gluten Allergy Diarrhea Verified 04/09/17 11:24 peanut Allergy Other Verified 04/09/17 11:24 red dye Allergy Other Verified 04/09/17 11:24 Home Medications: Home Meds PARoxetine [Paxil] 10 mg PO DAILY 08/30/16 [History] Loratadine/Pseudoephedrine [Loratadine-D 24Hr] 1 tab PO DAILY 04/09/17 [History] Past Medical History - Past Health History Medical/Surgical History: Denies Medical/Surgical History HEENT History: Reports: Impaired Vision Other HEENT History: wears glasses Cardiovascular History: Reports: None Respiratory History: Reports: None Gastrointestinal History: Reports: Diverticulosis Genitourinary History: Reports: None [employer] History: Reports: None Other OB/BYN History: hysterectomy Musculoskeletal History: Reports: None Neurological History: Reports: None Psychiatric History: Reports: Anxiety Endocrine/Metabolic History: Reports: Obesity/BMI 30+ Hematologic History: Reports: None Immunologic History: Reports: None Oncologic (Cancer) History: Reports: None Dermatologic History: Reports: None - Infectious Disease History Infectious Disease History: Reports: Chicken Pox - Past Surgical History Head Surgeries/Procedures: Reports: None HEENT Surgical History: Reports: Tonsillectomy GI Surgical History: Reports: Cholecystectomy Female Surgical History: Reports: Section Social & Family History - Family History Family Medical History: Unobtainable - Tobacco Use Smoking Status *Q: Unknown Ever Smoked - Caffeine Use Caffeine Use: Reports: Other Other Caffeine Use: unknown - Living Situation & Occupation Living situation: Reports: , with Family H&P Review of Systems - Review of Systems: Review Of Systems: Comprehensive ROS is negative, except as noted in HPI. Exam - Exam Exam: See Below - Vital Signs Vital Signs: Last Vital Signs Temp 99.4 F 10/31/19 02:42 Pulse 91 10/31/19 02:42 Resp 16 10/31/19 02:42 BP 121/45 L 10/31/19 02:42 Pulse Ox 95 10/31/19 02:42 Weight: 388 lb 11.2 oz - Exam General: Sedated HEENT: Conjunctiva Clear, EOMI, Other (Dried blood on her lips. ) Neck: Supple Lungs: Wheezing, Other (Transmitted upper airway sounds from significant snoring ) Cardiovascular: Regular Rate, Regular Rhythm GI/Abdominal Exam: Normal Bowel Sounds, Soft, Non-Tender, No Distention Extremities: Normal Inspection, Non-Tender, No Pedal Edema Neuro Extensive - Mental Status: Other (Sedated) Neuro Extensive - Motor, Sensory, Reflexes: Other (Sedated) Psychiatric: Other (sedated) - Patient Data Lab Results Last 24 hrs: Laboratory Results - last 24 hr 10/30/19 10/30/19 10/30/19 Range/Units 22:00 22:00 22:05 WBC (5.0-10.0) 10^3/uL RBC (4.2-5.4) 10^6/uL Hgb (12.0-16.0) g/dL Hct (37.0-47.0) % MCV (80-100) fL MCH (27.0-34.0) pg MCHC (33.0-35.0) g/dL Plt Count (150-450) 10^3/uL Neut % (Auto) (42.2-75.2) % Lymph % (Auto) (20.5-50.1) % [place] % (Auto) (2-8) % Eos % (Auto) (1.0-3.0) % Baso % (Auto) (0.0-1.0) % Sodium (136-145) mmol/L Potassium (3.5-5.1) mmol/L Chloride (98-107) mmol/L Carbon Dioxide (21-32) mmol/L Anion Gap (7-13) mEq/L BUN (7-18) mg/dL Creatinine (0.55-1.02) mg/dL Est Cr Clr Drug Dosing Estimated GFR (MDRD) BUN/Creatinine Ratio (No establ ref range) Glucose (74-99) mg/dL POC Glucose 91 (70-105) mg/dl Lactic Acid (0.4-2.0) mmol/L Calcium (8.5-10.1) mg/dL Total Bilirubin (0.2-1.0) mg/dL AST (15-37) U/L ALT (14-59) U/L Alkaline Phosphatase (46-116) U/L Total Protein (6.4-8.2) g/dL Albumin (3.4-5.0) g/dL Globulin Albumin/Globulin Ratio HCG, Qual Urine Color Yellow (YELLOW) Urine Appearance Slightly cloudy (CLEAR) Urine pH 6.0 (5.0-9.0) Ur Specific Stewart 1.015 (1.005-1.030) Urine Protein Negative (NEGATIVE) Urine Glucose (UA) Negative (NEGATIVE) Urine Ketones Negative (NEGATIVE) Urine Occult Blood Negative (NEGATIVE) Urine Nitrite Negative (NEGATIVE) Urine Bilirubin Negative (NEGATIVE) Urine Urobilinogen 0.2 (0.2-1.0) mg/dL Ur Leukocyte Esterase Trace H (NEGATIVE) Urine RBC Not seen /HPF Urine WBC 0-5 (0-5/HPF) /HPF Ur Epithelial Cells Moderate H (NOT SEEN) /HPF Amorphous Sediment Few (NOT SEEN) /HPF Urine Bacteria Few (0-FEW/HPF) /HPF Urine Mucus Rare (NOT SEEN) /LPF Salicylates (2.8-20(Therapeutic)) mg/dL Urine Opiates Screen Negative (NEGATIVE) Ur Oxycodone Screen Positive H (NEGATIVE) Urine Methadone Screen Negative (NEGATIVE) Acetaminophen (10-30 (Therapeutic)) ug/mL Ur Barbiturates Screen Negative (NEGATIVE) U Tricyclic Antidepress Positive H (NEGATIVE) Ur Phencyclidine Scrn Negative (NEGATIVE) Ur Amphetamine Screen Negative (NEGATIVE) U Methamphetamines Scrn Negative (NEGATIVE) Urine MDMA Screen Negative (NEGATIVE) U Benzodiazepines Scrn Positive H (NEGATIVE) Urine Cocaine Screen Negative (NEGATIVE) U Marijuana (THC) Screen Positive H (NEGATIVE) Ethyl Alcohol (0) mg/dL 10/30/19 10/30/19 10/30/19 Range/Units 22:14 22:14 22:14 WBC 11.4 H (5.0-10.0) 10^3/uL RBC 4.97 (4.2-5.4) 10^6/uL Hgb 14.2 (12.0-16.0) g/dL Hct 44.2 (37.0-47.0) % MCV 88.9 (80-100) fL MCH 28.6 (27.0-34.0) pg MCHC 32.1 L (33.0-35.0) g/dL Plt Count 286 (150-450) 10^3/uL Neut % (Auto) 61.3 (42.2-75.2) % Lymph % (Auto) 29.1 (20.5-50.1) % [place] % (Auto) 5.5 (2-8) % Eos % (Auto) 3.8 H (1.0-3.0) % Baso % (Auto) 0.3 (0.0-1.0) % Sodium 140 (136-145) mmol/L Potassium 3.9 (3.5-5.1) mmol/L Chloride 102 (98-107) mmol/L Carbon Dioxide 36 H (21-32) mmol/L Anion Gap 5.9 L (7-13) mEq/L BUN 6 L (7-18) mg/dL Creatinine 0.95 (0.55-1.02) mg/dL Est Cr Clr Drug Dosing TNP Estimated GFR (MDRD) > 60 BUN/Creatinine Ratio 6.3 (No establ ref range) Glucose 89 (74-99) mg/dL POC Glucose (70-105) mg/dl Lactic Acid 0.8 (0.4-2.0) mmol/L Calcium 8.4 L (8.5-10.1) mg/dL Total Bilirubin 0.4 (0.2-1.0) mg/dL AST 45 H (15-37) U/L ALT 58 (14-59) U/L Alkaline Phosphatase 134 H (46-116) U/L Total Protein 7.1 (6.4-8.2) g/dL Albumin 3.3 L (3.4-5.0) g/dL Globulin 3.8 Albumin/Globulin Ratio 0.87 HCG, Qual Urine Color (YELLOW) Urine Appearance (CLEAR) Urine pH (5.0-9.0) Ur Specific Stewart (1.005-1.030) Urine Protein (NEGATIVE) Urine Glucose (UA) (NEGATIVE) Urine Ketones (NEGATIVE) Urine Occult Blood (NEGATIVE) Urine Nitrite (NEGATIVE) Urine Bilirubin (NEGATIVE) Urine Urobilinogen (0.2-1.0) mg/dL Ur Leukocyte Esterase (NEGATIVE) Urine RBC /HPF Urine WBC (0-5/HPF) /HPF Ur Epithelial Cells (NOT SEEN) /HPF Amorphous Sediment (NOT SEEN) /HPF Urine Bacteria (0-FEW/HPF) /HPF Urine Mucus (NOT SEEN) /LPF Salicylates (2.8-20(Therapeutic)) mg/dL Urine Opiates Screen (NEGATIVE) Ur Oxycodone Screen (NEGATIVE) Urine Methadone Screen (NEGATIVE) Acetaminophen (10-30 (Therapeutic)) ug/mL Ur Barbiturates Screen (NEGATIVE) U Tricyclic Antidepress (NEGATIVE) Ur Phencyclidine Scrn (NEGATIVE) Ur Amphetamine Screen (NEGATIVE) U Methamphetamines Scrn (NEGATIVE) Urine MDMA Screen (NEGATIVE) U Benzodiazepines Scrn (NEGATIVE) Urine Cocaine Screen (NEGATIVE) U Marijuana (THC) Screen (NEGATIVE) Ethyl Alcohol < 3 (0) mg/dL 10/30/19 10/30/19 Range/Units 22:14 22:14 WBC (5.0-10.0) 10^3/uL RBC (4.2-5.4) 10^6/uL Hgb (12.0-16.0) g/dL Hct (37.0-47.0) % MCV (80-100) fL MCH (27.0-34.0) pg MCHC (33.0-35.0) g/dL Plt Count (150-450) 10^3/uL Neut % (Auto) (42.2-75.2) % Lymph % (Auto) (20.5-50.1) % [place] % (Auto) (2-8) % Eos % (Auto) (1.0-3.0) % Baso % (Auto) (0.0-1.0) % Sodium (136-145) mmol/L Potassium (3.5-5.1) mmol/L Chloride (98-107) mmol/L Carbon Dioxide (21-32) mmol/L Anion Gap (7-13) mEq/L BUN (7-18) mg/dL Creatinine (0.55-1.02) mg/dL Est Cr Clr Drug Dosing Estimated GFR (MDRD) BUN/Creatinine Ratio (No establ ref range) Glucose (74-99) mg/dL POC Glucose (70-105) mg/dl Lactic Acid (0.4-2.0) mmol/L Calcium (8.5-10.1) mg/dL Total Bilirubin (0.2-1.0) mg/dL AST (15-37) U/L ALT (14-59) U/L Alkaline Phosphatase (46-116) U/L Total Protein (6.4-8.2) g/dL Albumin (3.4-5.0) g/dL Globulin Albumin/Globulin Ratio HCG, Qual Negative Urine Color (YELLOW) Urine Appearance (CLEAR) Urine pH (5.0-9.0) Ur Specific [place] (1.005-1.030) Urine Protein (NEGATIVE) Urine Glucose (UA) (NEGATIVE) Urine Ketones (NEGATIVE) Urine Occult Blood (NEGATIVE) Urine Nitrite (NEGATIVE) Urine Bilirubin (NEGATIVE) Urine Urobilinogen (0.2-1.0) mg/dL Ur Leukocyte Esterase (NEGATIVE) Urine RBC /HPF Urine WBC (0-5/HPF) /HPF Ur Epithelial Cells (NOT SEEN) /HPF Amorphous Sediment (NOT SEEN) /HPF Urine Bacteria (0-FEW/HPF) /HPF Urine Mucus (NOT SEEN) /LPF Salicylates < 2.8 L (2.8-20(Therapeutic)) mg/dL Urine Opiates Screen (NEGATIVE) Ur Oxycodone Screen (NEGATIVE) Urine Methadone Screen (NEGATIVE) Acetaminophen 0 L (10-30 (Therapeutic)) ug/mL Ur Barbiturates Screen (NEGATIVE) U Tricyclic Antidepress (NEGATIVE) Ur Phencyclidine Scrn (NEGATIVE) Ur Amphetamine Screen (NEGATIVE) U Methamphetamines Scrn (NEGATIVE) Urine MDMA Screen (NEGATIVE) U Benzodiazepines Scrn (NEGATIVE) Urine Cocaine Screen (NEGATIVE) U Marijuana (THC) Screen (NEGATIVE) Ethyl Alcohol (0) mg/dL Result Diagrams: 10/30/19 22:14 10/30/19 22:14 - Problem List (1) Toxic encephalopathy SNOMED Code(s): 60816788 ICD Code: G92 - TOXIC ENCEPHALOPATHY Status: Acute Current Visit: Yes (2) Morbid obesity with BMI of 50.0-59.9, adult SNOMED Code(s): 895910395, 94034043805599 ICD Code: E66.01 - MORBID (SEVERE) OBESITY DUE TO EXCESS CALORIES; Z68.43 - BODY MASS INDEX (BMI) 50.0-59.9, ADULT Status: Acute Current Visit: Yes (3) Lip laceration SNOMED Code(s): 230204358 ICD Code: S01.511A - LACERATION WITHOUT FOREIGN BODY OF LIP, INITIAL ENCOUNTER Status: Acute Current Visit: No Qualifiers: Encounter type: initial encounter Qualified Code(s): S01.511A - Laceration without foreign body of lip, initial encounter (4) Opiate overdose SNOMED Code(s): 343576989 ICD Code: T40.601A - POISONING BY UNSP NARCOTICS, ACCIDENTAL, INIT Status: Acute Current Visit: No Qualifiers: Encounter type: initial encounter Injury intent: undetermined intent Qualified Code(s): T40.604A - Poisoning by unspecified narcotics, undetermined, initial encounter Problem List Initiated/Reviewed/Updated: Yes Orders Last 24hrs: Active Orders 24 hr Category Date Time Status Admission Diagnosis [ADT] Urgent ADT 10/31/19 02:17 Ordered Admission Status [Patient Status] [ADT] Routine ADT 10/31/19 02:17 Active Intake and Output [RC] QSHIFT Care 10/31/19 03:38 Ordered Oxygen Therapy [RC] PRN Care 10/31/19 03:37 Ordered Up With Assistance [RC] ASDIRECTED Care 10/31/19 03:37 Ordered VTE/DVT Education [RC] PER UNIT ROUTINE Care 10/31/19 03:37 Ordered Vital Signs [RC] Q4H Care 10/31/19 03:37 Ordered Nothing per Oral Now Diet [DIET] Diet 10/31/19 Breakfast Ordered CULTURE BLOOD [BC] Stat Lab 10/30/19 22:14 Received TRICYCLIC ANTIDEPRESSANT CONF Stat Lab 10/31/19 03:37 Ordered Acetaminophen [Tylenol] Med 10/31/19 03:37 Ordered 650 mg PO Q6H PRN Docusate Sodium/Sennosides [Senna Plus] Med 10/31/19 03:37 Ordered 1 tab PO BEDTIME PRN LORazepam [Ativan] Med 10/30/19 23:23 Active 1 mg IVPUSH ONETIME PRN Ondansetron [Zofran ODT] Med 10/31/19 03:37 Ordered 4 mg PO Q6H PRN Ondansetron [Zofran] Med 10/31/19 03:37 Ordered 4 mg IVPUSH Q4H PRN Sodium Chloride 0.9% @ 125 MLS/HR (1000ml) Med 10/31/19 03:45 Ordered Sodium Chloride 0.9% [Normal Saline] 1,000 ml IV ASDIRECTED Blood Culture x2 Reflex Set [OM.PC] Stat Oth 10/30/19 22:01 Ordered Seizure Precautions [OM.PC] Routine Oth 10/31/19 03:42 Ordered Resuscitation Status Routine Resus Stat 10/31/19 03:37 Ordered Medication Orders Acetaminophen (Tylenol) 650 mg PO Q6H PRN PRN Reason: Pain (Mild 1-3)/fever Sodium Chloride (Normal Saline) 1,000 mls @ 125 mls/hr IV ASDIRECTED ALEJANDRO Lorazepam (Ativan) 1 mg IVPUSH ONETIME PRN PRN Reason: Agitation Ondansetron HCl (Zofran Odt) 4 mg PO Q6H PRN PRN Reason: nausea, able to take PO Ondansetron HCl (Zofran) 4 mg IVPUSH Q4H PRN PRN Reason: Nausea/Vomiting Senna/Docusate Sodium (Senna Plus) 1 tab PO BEDTIME PRN PRN Reason: Constipation Assessment/Plan Comment:: #Acute toxic encephalopathy: Likely due to overdose on home medications. Patient tested positive for THC, oxycodone, benzodiazepines, and tricyclic antidepressants. Responded to Narcan in the ED but became agitated after she was given Ativan with subsequent sedation. CT brain reported negative. Has dried blood on her lips which may be due to tongue biting. Seizure precautions IV fluids Check serum tricyclic level Monitor cautiously #Chronic pain syndrome: We will use nonopiate medications to make manage patient's pain for now #Hypertension: Systolic blood pressures at goal. Diastolic blood pressure is low IV fluids #Morbid obesity Weight loss counseling when patient is coherent. #DVT prophylaxis: Low risk #Prophylaxis: N.p.o. for now CODE STATUS: Full code
[2019-10-31 07:42] VITALS: BP 105/64; PULSE 103
--- NOTE | 2019-10-31 09:17 | PCM.DCSUM1 ---
Discharge Summary - Hospital Course Free Text/Narrative:: Patient is a 38-year-old male with medical history significant for chronic daily headaches, GERD, nonalcoholic fatty liver disease, lumbar disc disease with radiculopathy, fibromyalgia, anxiety, status post cervical discectomy, and chronic pain syndrome who was admitted for acute encephalopathy. Patient could not provide any information upon admission. She tested positive for benzodiazepines, THC, opiates, and tricyclic antidepressants. She was started on IVF. This morning patient is alert and oriented. Indicates that she took a sleeping pill that someone gave to her a while ago. Also states that she was in so much pain that she took twice her normal dose of pain medications. Denies any SI or HI. Denies hallucinations or any other concerns. Reports that she bites her cheeks in her sleep every once in a while and it is not unusual for her to have blood in her mouth after those episodes. She was counseled about drug abuse and potential for overdose. She declined to pursue rehab. She is to follow up with PCP. HPI Initial Comments: Patient is encephalopathic, history below obtained from chart review and in speaking with ED provider. Patient is a 38-year-old male with medical history significant for chronic daily headaches, GERD, nonalcoholic fatty liver disease, lumbar disc disease with radiculopathy, fibromyalgia, anxiety, status post cervical discectomy, and chronic pain syndrome who was brought to the ED by friend to the ED because patient's boyfriend noticed that she kept passing out. ED provider reports that the patient's friends were unable to provide any further information. Patient had reported that she took an extra dose of her pain medications. Subsequently reported that she took sleeping pills. In the ED, patient became more responsive after receiving Narcan. However she became agitated and she was administered Ativan after which patient subsequently became sedated. I am unable to obtain ROS due to patient's condition. Diagnosis: Stroke: No - Discharge Data Discharge Date: 10/31/19 Discharge Disposition: Home, Self-Care 01 Condition: Fair - Referral to Home Health Primary Care Physician: PCP None - Discharge Diagnosis/Problem(s) (1) Toxic encephalopathy SNOMED Code(s): 38627633 ICD Code: G92 - TOXIC ENCEPHALOPATHY Status: Acute Current Visit: Yes (2) Morbid obesity with BMI of 50.0-59.9, adult SNOMED Code(s): 049367583, 19847260092889 ICD Code: E66.01 - MORBID (SEVERE) OBESITY DUE TO EXCESS CALORIES; Z68.43 - BODY MASS INDEX (BMI) 50.0-59.9, ADULT Status: Acute Current Visit: Yes (3) Lip laceration SNOMED Code(s): 237475849 ICD Code: S01.511A - LACERATION WITHOUT FOREIGN BODY OF LIP, INITIAL ENCOUNTER Status: Acute Current Visit: No Qualifiers: Encounter type: initial encounter Qualified Code(s): S01.511A - Laceration without foreign body of lip, initial encounter (4) Opiate overdose SNOMED Code(s): 113053252 ICD Code: T40.601A - POISONING BY UNSP NARCOTICS, ACCIDENTAL, INIT Status: Acute Current Visit: No Qualifiers: Encounter type: initial encounter Injury intent: undetermined intent Qualified Code(s): T40.604A - Poisoning by unspecified narcotics, undetermined, initial encounter - Discharge Plan *PRESCRIPTION DRUG MONITORING PROGRAM REVIEWED*: No *COPY OF PRESCRIPTION DRUG MONITORING REPORT IN PATIENT VANNA: No Home Medications: Home Meds PARoxetine [Paxil] 30 mg PO DAILY 08/30/16 [History] Loratadine/Pseudoephedrine [Loratadine-D 24Hr] 1 tab PO DAILY 04/09/17 [History] Patient Handouts: Opioid Overdose, Opioid Use Disorder Referrals: PCP,None [Primary Care Provider] - - Discharge Summary/Plan Comment DC Time >30 min.: Yes - General Info Date of Service: 10/31/19 Admission Dx/Problem (Free Text: Admission Diagnosis/Problem Admission Diagnosis/Problem Encephalopathy Subjective Update: Patient is alert and oriented this morning. Indicates that she took a sleeping pill that someone gave to her a while ago. Also states that she was in so much pain that she took twice her normal dose of pain medications. Denies any SI or HI. Denies hallucinations or any other concerns. Reports that she bites her cheeks in her sleep every once in a while and it is not unusual for her to have blood in her mouth after those episodes. Denies f/c, n/v/d/c, chest pain, shortness of breath, or any acute symptoms. - Patient Data Vitals - Most Recent: Last Vital Signs Temp 98.6 F 10/31/19 07:41 Pulse 103 H 10/31/19 07:41 Resp 16 10/31/19 07:41 BP 105/64 10/31/19 07:41 Pulse Ox 97 10/31/19 07:41 Weight - Most Recent: 388 lb 11.2 oz I&O - Last 24 hours: Intake & Output 10/30/19 10/31/19 10/31/19 22:59 06:59 14:59 Output Total 600 Balance -600 Lab Results - Last 24 hrs: Laboratory Results - last 24 hr 10/30/19 10/30/19 10/30/19 Range/Units 22:00 22:00 22:05 WBC (5.0-10.0) 10^3/uL RBC (4.2-5.4) 10^6/uL Hgb (12.0-16.0) g/dL Hct (37.0-47.0) % MCV (80-100) fL MCH (27.0-34.0) pg MCHC (33.0-35.0) g/dL Plt Count (150-450) 10^3/uL Neut % (Auto) (42.2-75.2) % Lymph % (Auto) (20.5-50.1) % [place] % (Auto) (2-8) % Eos % (Auto) (1.0-3.0) % Baso % (Auto) (0.0-1.0) % Sodium (136-145) mmol/L Potassium (3.5-5.1) mmol/L Chloride (98-107) mmol/L Carbon Dioxide (21-32) mmol/L Anion Gap (7-13) mEq/L BUN (7-18) mg/dL Creatinine (0.55-1.02) mg/dL Est Cr Clr Drug Dosing Estimated GFR (MDRD) BUN/Creatinine Ratio (No establ ref range) Glucose (74-99) mg/dL POC Glucose 91 (70-105) mg/dl Lactic Acid (0.4-2.0) mmol/L Calcium (8.5-10.1) mg/dL Total Bilirubin (0.2-1.0) mg/dL AST (15-37) U/L ALT (14-59) U/L Alkaline Phosphatase (46-116) U/L Total Protein (6.4-8.2) g/dL Albumin (3.4-5.0) g/dL Globulin Albumin/Globulin Ratio HCG, Qual Urine Color Yellow (YELLOW) Urine Appearance Slightly cloudy (CLEAR) Urine pH 6.0 (5.0-9.0) Ur Specific [place] 1.015 (1.005-1.030) Urine Protein Negative (NEGATIVE) Urine Glucose (UA) Negative (NEGATIVE) Urine Ketones Negative (NEGATIVE) Urine Occult Blood Negative (NEGATIVE) Urine Nitrite Negative (NEGATIVE) Urine Bilirubin Negative (NEGATIVE) Urine Urobilinogen 0.2 (0.2-1.0) mg/dL Ur Leukocyte Esterase Trace H (NEGATIVE) Urine RBC Not seen /HPF Urine WBC 0-5 (0-5/HPF) /HPF Ur Epithelial Cells Moderate H (NOT SEEN) /HPF Amorphous Sediment Few (NOT SEEN) /HPF Urine Bacteria Few (0-FEW/HPF) /HPF Urine Mucus Rare (NOT SEEN) /LPF Salicylates (2.8-20(Therapeutic)) mg/dL Urine Opiates Screen Negative (NEGATIVE) Ur Oxycodone Screen Positive H (NEGATIVE) Urine Methadone Screen Negative (NEGATIVE) Acetaminophen (10-30 (Therapeutic)) ug/mL Ur Barbiturates Screen Negative (NEGATIVE) U Tricyclic Antidepress Positive H (NEGATIVE) Ur Phencyclidine Scrn Negative (NEGATIVE) Ur Amphetamine Screen Negative (NEGATIVE) U Methamphetamines Scrn Negative (NEGATIVE) Urine MDMA Screen Negative (NEGATIVE) U Benzodiazepines Scrn Positive H (NEGATIVE) Urine Cocaine Screen Negative (NEGATIVE) U Marijuana (THC) Screen Positive H (NEGATIVE) Ethyl Alcohol (0) mg/dL 10/30/19 10/30/19 10/30/19 Range/Units 22:14 22:14 22:14 WBC 11.4 H (5.0-10.0) 10^3/uL RBC 4.97 (4.2-5.4) 10^6/uL Hgb 14.2 (12.0-16.0) g/dL Hct 44.2 (37.0-47.0) % MCV 88.9 (80-100) fL MCH 28.6 (27.0-34.0) pg MCHC 32.1 L (33.0-35.0) g/dL Plt Count 286 (150-450) 10^3/uL Neut % (Auto) 61.3 (42.2-75.2) % Lymph % (Auto) 29.1 (20.5-50.1) % [place] % (Auto) 5.5 (2-8) % Eos % (Auto) 3.8 H (1.0-3.0) % Baso % (Auto) 0.3 (0.0-1.0) % Sodium 140 (136-145) mmol/L Potassium 3.9 (3.5-5.1) mmol/L Chloride 102 (98-107) mmol/L Carbon Dioxide 36 H (21-32) mmol/L Anion Gap 5.9 L (7-13) mEq/L BUN 6 L (7-18) mg/dL Creatinine 0.95 (0.55-1.02) mg/dL Est Cr Clr Drug Dosing TNP Estimated GFR (MDRD) > 60 BUN/Creatinine Ratio 6.3 (No establ ref range) Glucose 89 (74-99) mg/dL POC Glucose (70-105) mg/dl Lactic Acid 0.8 (0.4-2.0) mmol/L Calcium 8.4 L (8.5-10.1) mg/dL Total Bilirubin 0.4 (0.2-1.0) mg/dL AST 45 H (15-37) U/L ALT 58 (14-59) U/L Alkaline Phosphatase 134 H (46-116) U/L Total Protein 7.1 (6.4-8.2) g/dL Albumin 3.3 L (3.4-5.0) g/dL Globulin 3.8 Albumin/Globulin Ratio 0.87 HCG, Qual Urine Color (YELLOW) Urine Appearance (CLEAR) Urine pH (5.0-9.0) Ur Specific [place] (1.005-1.030) Urine Protein (NEGATIVE) Urine Glucose (UA) (NEGATIVE) Urine Ketones (NEGATIVE) Urine Occult Blood (NEGATIVE) Urine Nitrite (NEGATIVE) Urine Bilirubin (NEGATIVE) Urine Urobilinogen (0.2-1.0) mg/dL Ur Leukocyte Esterase (NEGATIVE) Urine RBC /HPF Urine WBC (0-5/HPF) /HPF Ur Epithelial Cells (NOT SEEN) /HPF Amorphous Sediment (NOT SEEN) /HPF Urine Bacteria (0-FEW/HPF) /HPF Urine Mucus (NOT SEEN) /LPF Salicylates (2.8-20(Therapeutic)) mg/dL Urine Opiates Screen (NEGATIVE) Ur Oxycodone Screen (NEGATIVE) Urine Methadone Screen (NEGATIVE) Acetaminophen (10-30 (Therapeutic)) ug/mL Ur Barbiturates Screen (NEGATIVE) U Tricyclic Antidepress (NEGATIVE) Ur Phencyclidine Scrn (NEGATIVE) Ur Amphetamine Screen (NEGATIVE) U Methamphetamines Scrn (NEGATIVE) Urine MDMA Screen (NEGATIVE) U Benzodiazepines Scrn (NEGATIVE) Urine Cocaine Screen (NEGATIVE) U Marijuana (THC) Screen (NEGATIVE) Ethyl Alcohol < 3 (0) mg/dL 10/30/19 10/30/19 Range/Units 22:14 22:14 WBC (5.0-10.0) 10^3/uL RBC (4.2-5.4) 10^6/uL Hgb (12.0-16.0) g/dL Hct (37.0-47.0) % MCV (80-100) fL MCH (27.0-34.0) pg MCHC (33.0-35.0) g/dL Plt Count (150-450) 10^3/uL Neut % (Auto) (42.2-75.2) % Lymph % (Auto) (20.5-50.1) % [place] % (Auto) (2-8) % Eos % (Auto) (1.0-3.0) % Baso % (Auto) (0.0-1.0) % Sodium (136-145) mmol/L Potassium (3.5-5.1) mmol/L Chloride (98-107) mmol/L Carbon Dioxide (21-32) mmol/L Anion Gap (7-13) mEq/L BUN (7-18) mg/dL Creatinine (0.55-1.02) mg/dL Est Cr Clr Drug Dosing Estimated GFR (MDRD) BUN/Creatinine Ratio (No establ ref range) Glucose (74-99) mg/dL POC Glucose (70-105) mg/dl Lactic Acid (0.4-2.0) mmol/L Calcium (8.5-10.1) mg/dL Total Bilirubin (0.2-1.0) mg/dL AST (15-37) U/L ALT (14-59) U/L Alkaline Phosphatase (46-116) U/L Total Protein (6.4-8.2) g/dL Albumin (3.4-5.0) g/dL Globulin Albumin/Globulin Ratio HCG, Qual Negative Urine Color (YELLOW) Urine Appearance (CLEAR) Urine pH (5.0-9.0) Ur Specific [place] (1.005-1.030) Urine Protein (NEGATIVE) Urine Glucose (UA) (NEGATIVE) Urine Ketones (NEGATIVE) Urine Occult Blood (NEGATIVE) Urine Nitrite (NEGATIVE) Urine Bilirubin (NEGATIVE) Urine Urobilinogen (0.2-1.0) mg/dL Ur Leukocyte Esterase (NEGATIVE) Urine RBC /HPF Urine WBC (0-5/HPF) /HPF Ur Epithelial Cells (NOT SEEN) /HPF Amorphous Sediment (NOT SEEN) /HPF Urine Bacteria (0-FEW/HPF) /HPF Urine Mucus (NOT SEEN) /LPF Salicylates < 2.8 L (2.8-20(Therapeutic)) mg/dL Urine Opiates Screen (NEGATIVE) Ur Oxycodone Screen (NEGATIVE) Urine Methadone Screen (NEGATIVE) Acetaminophen 0 L (10-30 (Therapeutic)) ug/mL Ur Barbiturates Screen (NEGATIVE) U Tricyclic Antidepress (NEGATIVE) Ur Phencyclidine Scrn (NEGATIVE) Ur Amphetamine Screen (NEGATIVE) U Methamphetamines Scrn (NEGATIVE) Urine MDMA Screen (NEGATIVE) U Benzodiazepines Scrn (NEGATIVE) Urine Cocaine Screen (NEGATIVE) U Marijuana (THC) Screen (NEGATIVE) Ethyl Alcohol (0) mg/dL Med Orders - Current: Current Medications Acetaminophen (Tylenol) 650 mg PO Q6H PRN PRN Reason: Pain (Mild 1-3)/fever Sodium Chloride (Normal Saline) 1,000 mls @ 125 mls/hr IV ASDIRECTED [facility] Last Admin: 10/31/19 04:11 Dose: 125 mls/hr Lorazepam (Ativan) 1 mg IVPUSH ONETIME PRN PRN Reason: Agitation Ondansetron HCl (Zofran Odt) 4 mg PO Q6H PRN PRN Reason: nausea, able to take PO Ondansetron HCl (Zofran) 4 mg IVPUSH Q4H PRN PRN Reason: Nausea/Vomiting Senna/Docusate Sodium (Senna Plus) 1 tab PO BEDTIME PRN PRN Reason: Constipation Discontinued Medications Sodium Chloride (Normal Saline) 1,000 mls @ 500 mls/hr IV .BOLUS ONE Stop: 10/30/19 23:58 Last Admin: 10/30/19 22:16 Dose: 500 mls/hr Lorazepam (Ativan) 1 mg IVPUSH ONETIME PRN PRN Reason: Agitation Last Admin: 10/30/19 22:52 Dose: 1 mg Naloxone HCl (Narcan) 2 mg IVPUSH ONETIME ONE Stop: 10/30/19 22:12 Last Admin: 10/30/19 22:16 Dose: 2 mg Ondansetron HCl (Zofran) 4 mg IVPUSH ONETIME ONE Stop: 10/30/19 22:29 Last Admin: 10/30/19 22:52 Dose: 4 mg - Exam General: Reports: Alert, Oriented, Cooperative, No Acute Distress HEENT: Reports: Pupils Equal, Pupils Reactive, Mucous Membr. Moist/[place] Neck: Reports: Supple Lungs: Reports: Clear to Auscultation, Normal Respiratory Effort Cardiovascular: Reports: Regular Rate, Regular Rhythm Extremities: Normal Inspection, Non-Tender, No Pedal Edema Skin: Reports: Warm, Dry, Intact Wound/Incisions: Reports: Healing Well Neurological: Reports: No New Focal Deficit Psy/Mental Status: Reports: Alert, Normal Affect, Normal Mood
== END 2019-10-31 10:15 | disposition home or self-care (01) ==
LOC: DL.ED 21:55 → DL.MS 10-31 02:17
PROVIDERS: ADMIT Internal Medicine; ATTEND Internal Medicine
DX: G92 Toxic encephalopathy (principal); T40.604A Poisoning by unspecified narcotics, undetermined, initial encounter; S01.511A Laceration without foreign body of lip, initial encounter; F41.9 Anxiety disorder, unspecified; E66.01 Morbid (severe) obesity due to excess calories; G89.4 Chronic pain syndrome; R51 Headache; K21.9 Gastro-esophageal reflux disease without esophagitis; I10 Essential (primary) hypertension; Z91.012 Allergy to eggs; Z91.010 Allergy to peanuts; Z91.041 Radiographic dye allergy status; Z79.899 Other long term (current) drug therapy; Z68.43 Body mass index [BMI] 50.0-59.9, adult; Z71.3 Dietary counseling and surveillance; X58.XXXA Exposure to other specified factors, initial encounter
CPT/HCPCS: 36415; 70450; 80053; 80305; 80307; 80337; 80369; 81001; 82962; 83605; 84703; 85025; 87040; 93005; 96361; 96374; 96375; 99285; G0378; J2060; J2310; J2405; J7030; G0480